=== PATIENT | female | born 1990 | race African-American/Black ===

== ENCOUNTER 2017-01-06 19:42 | Emergency (ER) | payer SELFPAY ==
[~2017-01-06] VITALS: Ht 162.6 cm; Wt 60.5 kg
[2017-01-06 19:44] VITALS: BP 112/64; PULSE 70; RESP 16; TEMP 97.6; O2SAT 100
[2017-01-06] MEDS ORDERED: SODIUM CHLOR 0.9% 1000 ML INJ 1,000 ML IV SCH (20:50)
[2017-01-06] MEDS ORDERED: SODIUM CHLORIDE 0.9% FLUSH 10 ML FLUSH IV FLUSH PRN (21:00)
[2017-01-06] MEDS ORDERED: FAMOTIDINE 20 MG/2 ML VIAL IV PUSH ONE (21:00)
[2017-01-06] MEDS ORDERED: ONDANSETRON HCL 4 MG/2 ML VIAL IVP ONE (21:00)
[2017-01-06 22:16] LABS: BASOPHIL % 0.2 % (0.0-2.0); EOSINOPHIL % 0.1 % (0.0-4.0); HEMATOCRIT 37.2 % (35.0-46.0); HEMO FLAGS DIFF FINAL; LYMPH % 5.2 % (9.0-44.0); LYMPHOCYTE # 0.7 TH/MM3 (1.0-4.8); MEAN CELL VOLUME 93.5 FL (80.0-100.0); MEAN CORPUSCULAR HEMOGLOBIN 31.4 PG (27.0-34.0); MEAN CORPUSCULAR HGB CONC 33.5 % (32.0-36.0); MONO % 2.4 % (0.0-8.0); NEUT % 92.1 % (16.0-70.0); PLATELET COUNT 153 TH/MM3 (150-450); RED BLOOD COUNT 3.98 MIL/MM3 (4.00-5.30); RED CELL DISTRIBUTION WIDTH 12.9 % (11.6-17.2); WHITE BLOOD COUNT 14.1 TH/MM3 (4.0-11.0)
[2017-01-06 22:39] LABS: ALT (GPT) 18 U/L (10-53); ANION GAP 8 MEQ/L (5-15); BLOOD UREA NITROGEN 19 MG/DL (7-18); CHLORIDE 110 MEQ/L (98-107); GLOMERULAR FILTRATION RATE 108 ML/MIN (>89); POTASSIUM 3.7 MEQ/L (3.5-5.1); SODIUM (NA) 142 MEQ/L (136-145)
[2017-01-06 22:43] LABS: ALKALINE PHOSPHATASE 62 U/L (45-117); AST (GOT) 16 U/L (15-37)
[2017-01-06] MEDS ORDERED: ONDANSETRON HCL 4 MG/2 ML VIAL IV PUSH ONE (23:15)
[2017-01-06 23:27] LABS: BLOOD, URINE NEG (NEG); COMMENT (UR) CULT NOT INDICATED; CULTURE IF INDICATED CULT NOT INDICATED; GLUCOSE,URINE NEG (NEG); KETONE, URINE 40 mg/dL (NEG); MUCUS URINE MANY /lpf (OCC); NITRITE,URINE NEG (NEG); SQUAMOUS EPITHELIAL CELL URINE 10 /hpf (0-5); URINE COLOR YELLOW (YELLW/STRAW)
[2017-01-07] MEDS ORDERED: METOCLOPRAMIDE INJ 10 MG in SODIUM CHLORIDE 0.9% INJ 50 ML IV ONE (00:30)
--- NOTE | 2017-01-07 01:14 | PD ---
HPI Chief Complaint: GI Complaint Time Seen by Provider: 20:45 Travel History International Travel<30 days: No Contact w/Intl Traveler<30days: No Traveled to known affect area: No History of Present Illness HPI Patient is a 26 year old female who comes in complaining of nausea, vomiting, diarrhea. She says this started earlier this morning. She has had multiple episodes of each, she denies seeing blood in her stool or vomit. Several members of her family have had the same symptoms. She denies fever, but has felt chilled. She denies abdominal pain, but says it feels sore from vomiting. She denies any urinary symptoms. PFSH Past Medical History Medical History: Denies Significant Hx Asthma: Yes (NO PROBLEMS RECENTLY) Blood Disorders: No Cancer: No Cardiovascular Problems: No Endocrine: No Gastrointestinal Disorders: No Genitourinary: No Immune Disorder: No Implanted Vascular Access Dvce: No Musculoskeletal: No Neurologic: No Psychiatric: No Reproductive: No Tetanus Vaccination: < 5 Years ?: Not LMP: 1 mth Past Surgical History Surgical History: No Previous Surgery Other Surgery: No Social History Alcohol Use: No Tobacco Use: No Substance Use: No Allergies-Medications (Allergen,Severity, Reaction): Coded Allergies: No Known Allergies (Verified Adverse Reaction, Unknown, 01/06/17) Reported Meds & Prescriptions Reported Meds & Active Scripts Active No Active Prescriptions or Reported Medications Review of Systems Except as stated in HPI: all other systems reviewed are Neg General / Constitutional: Positive: Chills, No: Fever HENT: No: Headaches, Lightheadedness Cardiovascular: No: Chest Pain or Discomfort Respiratory: No: Shortness of Breath Gastrointestinal: Positive: Nausea, Vomiting, Diarrhea, No: Abdominal Pain Genitourinary: No: Dysuria, Flank Pain Musculoskeletal: No: Edema, Pain Skin: No Rash, No Change in Pigmentation Neurologic: No: Weakness, Dizziness Physical Exam Narrative GENERAL: Awake and alert, in no acute distress. SKIN: Focused skin assessment warm/dry. HEAD: Atraumatic. Normocephalic. EYES: Pupils equal and round. No scleral icterus. ENT: Mucous membranes pink and moist. NECK: Trachea midline. No JVD. CARDIOVASCULAR: Regular rate and rhythm. No murmur appreciated. RESPIRATORY: No accessory muscle use. Clear to auscultation. Breath sounds equal bilaterally. GASTROINTESTINAL: Abdomen soft, non-tender, nondistended. MUSCULOSKELETAL: No obvious deformities. No clubbing. No cyanosis. No edema. NEUROLOGICAL: Awake and alert. No obvious cranial nerve deficits. Motor grossly within normal limits. Normal speech. PSYCHIATRIC: Appropriate mood and affect; insight and judgment normal. Data Data Last Documented VS Vital Signs Date Time Temp Pulse Resp B/P (MAP) Pulse Ox O2 Delivery O2 Flow Rate FiO2 01/06/17 19:44 97.6 70 16 112/64 (80) 100 Room Air Orders Orders Complete Blood Count With Diff (01/06/17 20:50) Comprehensive Metabolic Panel (01/06/17 20:50) Urinalysis - C+S If Indicated (01/06/17 20:50) Iv Access Insert/Monitor (01/06/17 20:50) Ecg Monitoring (01/06/17 20:50) Oximetry (01/06/17 20:50) Ondansetron Inj (Zofran Inj) (01/06/17 21:00) Sodium Chlor 0.9% 1000 Ml Inj (Ns 1000 M (01/06/17 20:50) Sodium Chloride 0.9% Flush (Ns Flush) (01/06/17 21:00) Famotidine Inj (Pepcid Inj) (01/06/17 21:00) Ed Urine Pregnancytest Poc (01/06/17 20:50) Ondansetron Inj (Zofran Inj) (01/06/17 23:15) Metoclopramide Inj (Reglan Inj) (01/07/17 00:30) Ed Discharge Order (01/07/17 01:47) Labs Laboratory Tests Test 01/06/17 22:00 01/06/17 23:17 White Blood Count 14.1 TH/MM3 Red Blood Count 3.98 MIL/MM3 Hemoglobin 12.5 GM/DL Hematocrit 37.2 % Mean Corpuscular Volume 93.5 FL Mean Corpuscular Hemoglobin 31.4 PG Mean Corpuscular Hemoglobin Concent 33.5 % Red Cell Distribution Width 12.9 % Platelet Count 153 TH/MM3 Mean Platelet Volume 9.4 FL Neutrophils (%) (Auto) 92.1 % Lymphocytes (%) (Auto) 5.2 % Monocytes (%) (Auto) 2.4 % Eosinophils (%) (Auto) 0.1 % Basophils (%) (Auto) 0.2 % Neutrophils # (Auto) 13.0 TH/MM3 Lymphocytes # (Auto) 0.7 TH/MM3 Monocytes # (Auto) 0.3 TH/MM3 Eosinophils # (Auto) 0.0 TH/MM3 Basophils # (Auto) 0.0 TH/MM3 CBC Comment DIFF FINAL Differential Comment Blood Urea Nitrogen 19 MG/DL Creatinine 0.78 MG/DL Random Glucose 93 MG/DL Total Protein 6.3 GM/DL Albumin 3.7 GM/DL Calcium Level 8.5 MG/DL Alkaline Phosphatase 62 U/L Aspartate Amino Transf (AST/SGOT) 16 U/L Alanine Aminotransferase (ALT/SGPT) 18 U/L Total Bilirubin 1.0 MG/DL Sodium Level 142 MEQ/L Potassium Level 3.7 MEQ/L Chloride Level 110 MEQ/L Carbon Dioxide Level 24.0 MEQ/L Anion Gap 8 MEQ/L Estimat Glomerular Filtration Rate 108 ML/MIN Urine Color YELLOW Urine Turbidity HAZY Urine pH 6.0 Urine Specific [place] 1.031 Urine Protein TRACE mg/dL Urine Glucose (UA) NEG mg/dL Urine Ketones 40 mg/dL Urine Occult Blood NEG Urine Nitrite NEG Urine Bilirubin NEG Urine Urobilinogen LESS THAN 2.0 MG/DL Urine Leukocyte Esterase MOD Urine RBC 4 /hpf Urine WBC 6 /hpf Urine Squamous Epithelial Cells 10 /hpf Urine Mucus MANY /lpf Microscopic Urinalysis Comment CULT NOT INDICATED MDM Medical Decision Making Medical Screen Exam Complete: Yes Emergency Medical Condition: Yes Medical Record Reviewed: Yes Differential Diagnosis Gastroenteritis versus gastritis versus UTI versus pyelonephritis Narrative Course Patient is a 26-year-old female who comes in complaining of nausea, vomiting, diarrhea. Exam shows no tenderness to the abdomen on palpation. IV established , labs sent. Patient given IV fluids, Zofran, famotidine. Show a white blood cell count of 14, no other acute abnormalities. The Zofran helped, but she still feels nauseous, given additional Zofran. She started to vomit after having some ice chips, given Reglan. She reports feeling better. She is drinking [place] without vomiting. She is advised to drink plenty of fluids. Advised to eat a bland diet. Advised follow-up with a primary care doctor. Advised to return to the ED as needed for any worsening symptoms. Diagnosis Primary Impression: Gastroenteritis Patient Instructions: Gastroenteritis (ED), General Instructions Additional Instructions: Drink plenty of fluids. Eat a bland diet. She can take Reglan for nausea as needed. Return to the ED as needed for any worsening symptoms. Scripts Metoclopramide (Reglan) 10 Mg Tab 10 MG PO QID Y for NAUSEA, #12 TAB 0 Refills Prov: Amparo Valdez MD 01/07/17 Disposition: 01 DISCHARGE HOME Condition: Stable Amparo Valdez MD Jan 07, 2017 01:14
[2017-01-07] MEDS ORDERED: REGL10TA5 PO (01:50)
== END 2017-01-07 02:15 | disposition home or self-care (01) ==
LOC: NEPE 19:42
DX: K52.9 Noninfective gastroenteritis and colitis, unspecified (principal)
CPT/HCPCS: 80053; 81001; 84703; 85025; 96361; 96365; 96375; 96376; 99284; J2405; J2765; J7030

== ENCOUNTER 2017-06-17 13:39 | Emergency (ER) | payer SELFPAY ==
[2017-06-17] MEDS: predniSONE 20 MG TAB PO (16:31)
== END 2017-06-17 16:35 | disposition home or self-care (01) ==
LOC: NEPD 13:39
DX: R21 Rash and other nonspecific skin eruption (principal)
CPT/HCPCS: 99283